=== PATIENT | female | born 1955 | race Caucasian/White ===

== ENCOUNTER 2017-07-28 10:26 | Emergency (ER) | payer OTHER ==
--- OUTSIDE RECORDS SUMMARY | 2017-07-28 10:29 | XMS REPORT | Clinical Summary ---
:1955 Author Organization [facility] Address [address] [place] [address] Care Team Providers Name Role Phone Victor Hugo Adair MD Primary Care Provider Allergies Active Allergy Reactions Severity Noted Date Comments Oxycodone [id number] 04/23/2017 Current Medications Prescription Sig. Disp. Refills Start Date End Date Status lorenaphos- Take 1 30 capsule 0 04/23/2017 Active phsal-hyo (URIBEL) capsule by 118-10-40.8-36 mg mouth every 6 capsule (six) hours. zolpidem (AMBIEN) 10 Take 10 mg by Active mg tablet mouth nightly as needed for sleep. LORAZepam (ATIVAN) Take 0.5 mg Active 0.5 MG tablet by mouth every 8 (eight) hours as needed for anxiety. diphenhydrAMINE Take 25 mg by Active (BENADRYL) 25 mg mouth nightly tablet as needed for sleep. CALCIUM Take by Active CARBONATE/VITAMIN D3 mouth. (CALTRATE 600 + D ORAL) magnesium gluconate Take 500 mg Active (MAGONATE) 500 mg by mouth tablet tablet daily. multivitamins & Take 15 mL by Active minerals-ferrous mouth daily. gluconate 9 mg iron/15 mL liquid lansoprazole Take 15 mg by Active (PREVACID) 15 MG mouth daily. capsule aspirin (ECOTRIN) 81 Take 81 mg by Active MG enteric coated mouth daily. tablet DULoxetine (CYMBALTA) Take 1 30 capsule 3 07/21/2017 Active 60 MG capsule capsule (60 9 mg total) by mouth daily. nitrofurantoin, Take 1 14 capsule 0 04/23/2017 macrocrystal-monohydr capsule (100 8 ate, (MACROBID) 100 mg total) by MG capsule mouth 2 (two) times a day for 7 days. ciprofloxacin (CIPRO) Take 1 tablet 14 tablet 0 05/11/2017 500 MG tablet (500 mg 8 total) by mouth 2 (two) times a day for 7 days. sertraline (ZOLOFT) Take 25 mg by Discontinued 25 MG tablet mouth daily. 8 Active Problems Not on file Encounters Date Type Specialty Care Team Description 07/21/2017 Office Visit Rheumatology Krishna Saldana, Fibromyalgia ( Primary Dx); History of elevated antinuclear antibody; Sleep disorder; Anxiety and depression; History of osteoporosis; History of migraine 05/11/2017 Orders Only Urology Peggy Brown MD 05/11/2017 Orders Only Urology Peggy Brown MD History of recurrent UTIs (Primary Dx) 05/11/2017 Telephone Urology Peggy Brown MD 04/23/2017 Refill Urology Peggy Brown MD 04/23/2017 Orders Only Urology Peggy Brown MD History of recurrent UTIs (Primary Dx) 04/23/2017 Telephone Urology Peggy Brown MD after 07/27/2016 Social History Tobacco Use Types Packs/Day Years Used Date Never Smoker Smokeless Tobacco: Never Used Alcohol Use Drinks/Week oz/Week Comments No Sex Assigned at Date Recorded Not on file Last Filed Vital Signs Vital Sign Reading Time Taken Blood Pressure 124/72 07/21/2017 9:10 AM CDT Pulse 83 07/21/2017 9:10 AM CDT Temperature - - Respiratory Rate - - Oxygen Saturation - - Inhaled Oxygen Concentration - - Weight 53.5 kg (118 lb) 07/21/2017 9:10 AM CDT Height 160 cm (5' 3") 07/21/2017 9:10 AM CDT Body Mass Index 20.9 07/21/2017 9:10 AM CDT Plan of Treatment Health Maintenance Due Date Last Done Comments PAP SMEAR 1978 COLONOSCOPY 2007 MAMMOGRAM 2007 ZOSTER VACCINE 2017 INFLUENZA VACCINE 11/24/2017 Results RQEZ RNA POLYMERASE III (NOT ORDERABLE) (07/21/2017 10:20 AM) Component Value Ref Range RNA polymerase III <20 <20 Units Specimen Performing Laboratory [facility] Narrative FASTING:NO FASTING: NO INTERPRETATION ([facility]) (07/21/2017 10:20 AM) Component Value Ref Range Interpretation SEE NOTE Comment: Thirty percent to 60% of patients with systemic sclerosis have Scl-70 (anti-topoisomerase antibodies), anti-centromere B antibodies, and/or anti-RNA polymerase III antibodies. Current [place] [employer] classification criteria for systemic sclerosis includes antibodies to Scl-70, centromere and RNA polymerase III. Scl-70 antibody positivity is found in 20-60% of patients with diffuse cutaneous scleroderma, and 31-36% of Scl-70 antibody patients have limited scleroderma. Scl-70 positivity is associated with scleroderma pulmonary disease. Centromere B antibody positivity is found in 64-95% of patients with a limited form of cutaneous systemic sclerosis ; patients may present with "CREST" syndrome, a complex of subcutaneous calcinosis, Raynaud's phenomenon, esophageal dysmotility, sclerodactyly, and telangiectasias. Scl-70 and centromere B antibodies are almost mutually exclusive, being present simultaneously in less than 0.5% of patients with systemic sclerosis. The rare patient with both antibodies typically has diffuse subcutaneous sclerosis and features of CREST. RNA polymerase III antibodies are >99% specific for systemic sclerosis and are associated with diffuse cutaneous disease and high risk for scleroderma renal crisis, but a low incidence of severe pulmonary fibrosis. While absence of these antibodies does not rule out a diagnosis of scleroderma, consideration should be given to diseases associated with the other autoantibody markers included in the GEOVANNA IFA screen. Specimen Performing Laboratory [facility] Narrative FASTING:NO FASTING: NO CENTROMERE B ANTIBODY (07/21/2017 10:20 AM) Component Value Ref Range Centromere antibody <1.0 NEG <1.0 NEGATIVE AI Specimen Performing Laboratory [facility] Narrative FASTING:NO FASTING: NO Scl-70 antibody (07/21/2017 10:20 AM) Component Value Ref Range Scleroderma SCL-70 Ab <1.0 NEG <1.0 NEGATIVE AI Specimen Performing Laboratory [facility] Narrative FASTING:NO FASTING: NO GEOVANNA SCREEN, IFA (07/21/2017 10:20 AM) Component Value Ref Range GEOVANNA screen POSITIVE (A) NEGATIVE Comment: GEOVANNA IFA is a first line screen for detecting the presence of up to approximately 150 autoantibodies in various autoimmune diseases. A positive GEOVANNA IFA result is suggestive of autoimmune disease and reflexes to titer and pattern. Further laboratory testing may be considered if clinically indicated. Visit Physician FAQs for interpretation of all antibodies in the [place], prevalence, and association with diseases at http://education.[employer])/faq/BGK750 Specimen Performing Laboratory [facility] Narrative FASTING:NO FASTING: NO ANTINUCLEAR ANTIBODIES TITER AND PATTERN (07/21/2017 10:20 AM) Component Value Ref Range GEOVANNA titer 1:80 (H) titer Comment: A low level GEOVANNA titer may be present in pre-clinical autoimmune diseases and normal individuals. Reference Ranges for Anti-Nuclear Ab Titer: <1:40Negative 1:40-1:80Low Antibody Level >1:80Elevated Antibody Level GEOVANNA pattern HOMOGENEOUS Comment: Homogeneous pattern is associated with systemic lupus erythematosus (SLE), drug-induced lupus and juvenile idiopathic arthritis. Specimen Performing Laboratory [facility] Narrative FASTING:NO FASTING: NO Sedimentation rate (07/21/2017 10:20 AM) Component Value Ref Range Sedimentation rate 2 < OR=30 mm/h Specimen Performing Laboratory [facility] Narrative FASTING:NO FASTING: NO CBC with platelet and differential (07/21/2017 10:20 AM) Component Value Ref Range WBC 6.1 3.8 - 10.8 Thousand/uL RBC 4.20 3.80 - 5.10 Million/uL HGB 13.1 11.7 - 15.5 g/dL HCT 39.4 35.0 - 45.0 % MCV 93.8 80.0 - 100.0 fL MCH 31.2 27.0 - 33.0 pg MCHC 33.2 32.0 - 36.0 g/dL RDW 13.0 11.0 - 15.0 % Platelet count 319 140 - 400 Thousand/uL MPV 8.8 7.5 - 12.5 fL Neutrophils, absolute 4,965 1,500 - 7,800 cells/uL Lymphocytes, absolute 964 850 - 3,900 cells/uL Monocytes, absolute 140 (L) 200 - 950 cells/uL Eosinophils, absolute 12 (L) 15 - 500 cells/uL Basophils, absolute 18 0 - 200 cells/uL Neutrophils 81.4 % Lymphocytes 15.8 % Monocytes 2.3 % Eosinophils 0.2 % Basophils + RC 0.3 % Specimen Performing Laboratory [facility] Narrative FASTING:NO FASTING: NO Comprehensive metabolic panel (07/21/2017 10:20 AM) Component Value Ref Range Glucose 110 (H) 65 - 99 mg/dL Comment: Fasting reference interval For someone without known diabetes, a glucose value between 100 and 125 mg/dL is consistent with prediabetes and should be confirmed with a follow-up test. BUN, whole blood 30 (H) 7 - 25 mg/dL Creatinine 0.90 0.50 - 0.99 mg/dL Comment: For patients >49 years of age, the reference limit for Creatinine is approximately 13% higher for people identified as -Samoan. EGFR Non-Afr. Samoan 69 > OR=60 mL/min/1.73m2 EGFR 81 > OR=60 mL/min/1.73m2 BUN/creatinine ratio 33 (H) 6 - 22 (calc) Sodium 140 135 - 146 mmol/L Potassium 4.5 3.5 - 5.3 mmol/L Chloride 106 98 - 110 mmol/L CO2 29 20 - 31 mmol/L Calcium 9.3 8.6 - 10.4 mg/dL Protein 6.3 6.1 - 8.1 g/dL Albumin, S 4.2 3.6 - 5.1 g/dL Globulin, total 2.1 1.9 - 3.7 g/dL (calc) Albumin/globulin ratio 2.0 1.0 - 2.5 (calc) Total bilirubin 0.5 0.2 - 1.2 mg/dL Alkaline phosphatase 58 33 - 130 U/L AST 25 10 - 35 U/L ALT 24 6 - 29 U/L Specimen Performing Laboratory [facility] Narrative FASTING:NO FASTING: NO Urine culture (04/23/2017 1:58 PM) Component Value Ref Range Urine culture SEE NOTE (A) Comment: CULTURE, URINE, ROUTINE MICRO NUMBER:[id number] TEST STATUS: FINAL SPECIMEN SOURCE: URINE, CATHETER SPECIMEN QUALITY:ADEQUATE RESULT:Greater than 100,000 CFU/mL of Escherichia coli E.coli INT AGUILA AMOX/CLAVULANATE S 8 AMPICILLIN R >=32 AMP/SULBACTAMS 8 CEFAZOLINNR<=4 1 CEFEPIME S <=1 CEFTRIAXONES <=1 CIPROFLOXACINS <=0.25 GENTAMICIN S <=1 IMIPENEM S <=0.25 LEVOFLOXACIN S <=0.12 NITROFURANTOIN S <=16 PIP/TAZOBACTAM S <=4 TOBRAMYCIN S <=1 TRIMETHOPRIM/SULFA S <=20 S=SusceptibleI=IntermediateR=Resistant*=Not Tested NR=Not ReportedNN=See Therapy Comments THERAPY COMMENTS Note 1: ORAL therapy: A cefazolin AGUILA of < 32 predicts susceptibility to the oral agents cefaclor, cefdinir, cefpodoxime, cefprozil, cefuroxime, cephalexin, and loracarbef when used for therapy of uncomplicated UTIs due to E. coli, K. pneumoniae, and P. mirabilis. PARENTERAL therapy: A cefazolin AGUILA of > 8 indicates resistance to parenteral cefazolin. An alternate test method must be performed to to confirm susceptibility to parenteral cefazolin. Specimen Performing Laboratory U[facility] Narrative FASTING:NO FASTING: NO after 07/27/2016 Insurance Payer Benefit Plan / Group Subscriber ID Type Phone Address AETNA AETNA HMO,POS,EPO, MC/EC xxxxxxxxx HMO Work: [employer] [phone] [address] Home: [phone] [facility]
[2017-07-28 10:56] LABS: Absolute Lymphocytes (CBC) 0.6 K/uL (0.7-4.9); Absolute Monocytes 0.4 K/uL (0.1-1.3); Absolute Neutrophil 6.7 K/uL (1.8-8.0); Basophils % 0.2 % (0-1.3); Eosinophils % 0.7 % (0-4.4); Hematocrit 45.7 % (36.0-45.0); Lymphocytes % 7.2 % (15.3-44.8); MCH 32.5 pg (27.0-35.0); MCV 96.2 fL (80-100); MPV 7.2 fL (7.6-11.3); Monocytes % 5.4 % (3.3-12.3); RBC Red Blood Cell Count 4.75 M/uL (3.86-4.86)
[2017-07-28] MEDS ORDERED: FAMOTIDINE 20 MG/2 ML VIAL IV ONE (11:00)
[2017-07-28] MEDS ORDERED: NA CHLORIDE 0.9% 500 ML ONE (11:00)
--- NOTE | 2017-07-28 11:02 | RAD REPORT ---
EXAM DESCRIPTION: Shona Single View07/28/2017 10:45 am CLINICAL HISTORY: Chest pain COMPARISON: 2013 FINDINGS: The lungs appear clear of acute infiltrate. The heart is normal size IMPRESSION: No acute abnormalities displayed
[2017-07-28 11:03] LABS: Protime INR 0.95
[2017-07-28] MEDS ORDERED: PROMETHAZINE 25 MG/ML VIAL ONE (11:23)
--- NOTE | 2017-07-28 11:24 | EKG ---
Test Date: 2017-07-28 Test Time: 10:35:27 Juvenile Probation Officer: JAMES MEASUREMENT RESULTS: Intervals: Rate: 104 HI: 138 QRSD: 72 QT: 352 QTc: 462 [place]: P: -2 HI: 138 QRS: 55 T: -16 INTERPRETIVE STATEMENTS: Sinus tachycardia Non specific T wave abnormality Abnormal ECG Compared to ECG 10/15/2012 07:06:01 T-wave abnormality now present Sinus rhythm no longer present Electronically Signed On 07-28-17 11:24:16 CDT by Tomas Garcia
[2017-07-28 11:25] LABS: Potassium 4.2 mEq/L (3.6-5.0)
[2017-07-28 11:30] LABS: Albumin 4.8 g/dL (3.2-5.5); Bilirubin Direct 0.2 mg/dL (0-0.2); Bilirubin Total 1.9 mg/dL (0.3-1.2); Protein, Total 7.6 g/dL (6.0-8.3)
[2017-07-28 11:35] LABS: CKMB Creatine Kinase MB 1.2 ng/ml (0.3-4.0)
[2017-07-28] MEDS ORDERED: NA CHLORIDE 0.9% 1,000 ML ONE (11:49)
[2017-07-28 13:30] LABS: Blood Morphology Comment NOT SEEN (NOT SEEN); Platelet Estimate ADEQ
--- NOTE | 2017-07-28 13:50 | RAD REPORT ---
EXAM DESCRIPTION: CT - Abdomen Pelvis W Contrast - 07/28/2017 1:35 pm CLINICAL HISTORY: Abdominal pain. Nausea, vomiting and diarrhea COMPARISON: 2011 TECHNIQUE: Computed axial tomography of the abdomen and pelvis was obtained. 100 cc Isovue-300 is ad ministered intravenously. Oral contrast was given. All CT scans are performed using dose optimization technique as appropriate and may include automated exposure control or mA/KV adjustment according to patient size. FINDINGS: A moderate hiatal hernia is present. The liver, spleen, pancreas, adrenals and kidneys appear unremarkable. A small right renal cyst prese nt. The appendix is normal caliber. There is no evidence of diverticulitis. An adnexal mass is not seen. Several loops of ileum are upper limits normal caliber. IMPRESSION: Several loops of ileum are upper limits normal caliber. This may indicate an enteritis. Moderate hiatal hernia
--- NOTE | 2017-07-28 15:23 | EDPHYS ---
Physician Documentation [facility] Name: Darby Kendrick Age: 62 yrs Sex: Female : 1955 Arrival Date: 07/28/2017 Time: 10:28 Bed 5 Private MD: ED Physician Deshawn Yanes HPI: 07/28 10:32 This 62 yrs old Female presents to ER via Unassigned with complaints of cp Nausea/Vomiting/Diarrhea, Abdominal Pain. 10:32 The patient presents to the emergency department with nausea, that is moderate, cp vomiting, that is intermittent, diarrhea, that is intermittent. Onset: The symptoms/episode began/occurred this morning, at 06:30. Possible causes: unknown. 10:32 Associated signs and symptoms: Pertinent negatives: constipation, dysuria, fever, GI cp bleeding. 10:32 Severity of symptoms: in the emergency department the symptoms are unchanged despite cp home interventions. Historical: - Allergies: 10:33 Percodan; hj - Home Meds: 10:33 Cymbalta 60 mg oral cpDR 1 cap once daily [Active]; Ambien 10 mg Oral tab 1 tab once hj daily [Active]; alprazolam 0.25 mg Oral tab 1 tab 3 times per day [Active]; sertraline 25 mg oral tab 1 tab once daily [Active]; acetaminophen 500 mg oral tab 1 tab every 4 hours [Active]; magnesium oxide 500 mg Oral tab [Active]; melatonin 10 mg Oral cap [Active]; lansoprazole 15 mg oral cpDR 1 cap as needed [Active]; - PMHx: 10:33 Fibromyalgia; Anxiety; Depression; hj - PSHx: 10:33 Unable to obtain; hj - Immunization history:: Adult Immunizations unknown. - Social history:: Smoking status: Patient/guardian denies using tobacco, Patient/guardian denies using alcohol. ROS: 10:35 Constitutional: Positive for poor PO intake, Negative for body aches, chills, fever. cp 10:35 Eyes: Negative for injury, pain, redness, and discharge, ENT: Negative for injury, cp pain, and discharge. 10:35 Cardiovascular: Negative for chest pain, edema, palpitations. 10:35 Respiratory: Negative for cough, shortness of breath, wheezing. 10:35 Abdomen/GI: Positive for abdominal pain, nausea, vomiting, and diarrhea, Negative for constipation, black/tarry stool, rectal bleeding. 10:35 Back: Negative for pain at rest, pain with movement, radiated pain. 10:35 : Negative for urinary symptoms. 10:35 Skin: Negative for cellulitis, rash. 10:35 Neuro: Negative for altered mental status, dizziness, headache, weakness. 10:35 All other systems are negative. Exam: 10:40 ECG was reviewed by the Attending Physician. cp 10:45 Constitutional: The patient appears in no acute distress, alert, awake, cp non-diaphoretic, non-toxic, well developed, well nourished, uncomfortable. 10:45 Head/Face: Normocephalic, atraumatic. cp 10:45 Eyes: Periorbital structures: appear normal, Pupils: equal, round, and reactive to light and accomodation, Conjunctiva: normal, no exudate, no injection, Sclera: no appreciated abnormality, Lids and lashes: appear normal, bilaterally. 10:45 ENT: External ear(s): are unremarkable, Ear canal(s): are normal, clear, TM's: bulging, is not appreciated, bilaterally, dullness, bilaterally, erythema, is not appreciated, bilaterally, Nose: is normal, Mouth: Lips: dry, Oral mucosa: dry, Posterior pharynx: Airway: no evidence of obstruction, patent, Tonsils: are normal in appearance, Uvula: midline, non-edematous, no erythema, swelling, is not appreciated, erythema, is not appreciated, exudate, is not appreciated. 10:45 Neck: ROM/movement: is normal, is supple, without pain, no range of motions limitations, no meningismus, no nuchal rigidity. 10:45 Chest/axilla: Inspection: normal, Palpation: is normal, no crepitus, no tenderness. 10:45 Cardiovascular: Rate: tachycardic, Rhythm: regular. 10:45 Respiratory: the patient does not display signs of respiratory distress, Respirations: normal, no use of accessory muscles, no retractions, no splinting, no tachypnea, labored breathing, is not present, Breath sounds: are clear throughout, no decreased breath sounds, no stridor, no wheezing. 10:45 Abdomen/GI: Inspection: abdomen appears normal, Bowel sounds: active, all quadrants, Palpation: soft, in all quadrants, moderate abdominal tenderness, in all quadrants, rebound tenderness, is not appreciated, voluntary guarding, is elicited in all quadrants. 10:45 Back: pain, is absent, ROM is normal. 10:45 : CVA tenderness, is absent. 10:45 Skin: cellulitis, is not appreciated, no rash present. 10:45 Neuro: Orientation: to person, place \T\ time. Mentation: lucid, able to follow commands, Cerebellar function: is grossly normal, Motor: moves all fours, strength is normal, Sensation: no obvious gross deficits. Vital Signs: 10:35 BP 109 / 60; Pulse 105; Resp 18; Temp 98.1(O); Pulse Ox 100% on R/A; Weight 52.62 kg; hj Height 5 ft. 3 in. (160.02 cm); Pain 5/10; 10:50 BP 113 / 89; Pulse 95; Resp 18; Pulse Ox 100% on R/A; hj 12:09 BP 127 / 68; Pulse 105; Resp 18; Pulse Ox 100% on R/A; hj 14:03 BP 118 / 64; Pulse 100; Resp 18; Pulse Ox 100% on R/A; hj 15:10 BP 114 / 61; Pulse 101; Resp 18; Pulse Ox 100% ; hj 15:42 BP 111 / 62; Pulse 95; Resp 18; Pulse Ox 100% on R/A; hj 10:35 Body Mass Index 20.55 (52.62 kg, 160.02 cm) MDM: 10:29 Patient medically screened. cp 11:00 Differential diagnosis: gastritis, cholecystitis, pancreatitis, appendicitis, cp diverticulitis, viral gastroenteritis, gastroenteritis. 15:15 Data reviewed: vital signs, nurses notes, lab test result(s), EKG, radiologic studies. cp 15:15 Test interpretation: by ED physician or midlevel provider: ECG, plain radiologic cp studies. Counseling: I had a detailed discussion with the patient and/or guardian regarding: the historical points, exam findings, and any diagnostic results supporting the discharge/admit diagnosis, lab results, radiology results, the need for outpatient follow up, a family practitioner. Response to treatment: the patient's symptoms have markedly improved after treatment, VSS. Reexamination of abdomen: benign with no tenderness noted. Patient tolerating po fluids. Will discharge to home for continued monitoring. 07/28 10:31 Order name: Basic Metabolic Panel; Complete Time: 11:38 cp 07/28 11:38 Interpretation: Normal except: GLUC 149; BUN 24; CRE 1.06; GFR 53. cp 07/28 10:31 Order name: BNP; Complete Time: 11:38 cp 07/28 10:31 Order name: CBC with Diff; Complete Time: 13:53 cp 07/28 11:23 Interpretation: Normal except: HGB 15.4; HCT 45.7; MCV 96.2; MPV 7.2; VASU% 86.5; LYM% cp 7.2; LYMA 0.6. 07/28 10:31 Order name: Ckmb; Complete Time: 11:38 cp 07/28 10:31 Order name: CPK; Complete Time: 11:38 cp 07/28 10:31 Order name: LFT's; Complete Time: 11:38 cp 07/28 11:39 Interpretation: Normal except: BILIT 1.9. cp 07/28 10:31 Order name: Magnesium; Complete Time: 11:38 cp 07/28 10:31 Order name: PT-INR; Complete Time: 11:22 cp 07/28 10:31 Order name: Ptt, Activated; Complete Time: 11:22 cp 07/28 14:27 Interpretation: PTT 23.2; Reviewed. cp 07/28 10:31 Order name: Troponin (emerg Dept Use Only); Complete Time: 11:22 cp 07/28 10:31 Order name: Lipase; Complete Time: 11:38 cp 07/28 13:29 Order name: Manual Differential; Complete Time: 13:53 EDAK 07/28 13:53 Interpretation: Abnormal: BANDS [F] 15; LYM 9. cp 07/28 14:08 Order name: Strep cp 07/28 14:38 Order name: Throat Culture EDMS 07/28 10:31 Order name: Urine Test (obtain specimen); Complete Time: 14:49 cp 07/28 10:31 Order name: XRAY Chest (1 view); Complete Time: 11:22 cp 07/28 10:31 Order name: EKG; Complete Time: 10:32 cp 07/28 10:31 Order name: Cardiac monitoring; Complete Time: 10:37 cp 07/28 10:31 Order name: EKG - Nurse/Tech; Complete Time: 10:46 cp 07/28 10:31 Order name: IV Saline Lock; Complete Time: 10:37 cp 07/28 10:31 Order name: Labs collected and sent; Complete Time: 10:46 cp 07/28 10:31 Order name: O2 Per Protocol; Complete Time: 10:38 cp 07/28 10:31 Order name: O2 Sat Monitoring; Complete Time: 10:38 cp 07/28 10:55 Order name: CT Abd/Pelvis - W/Contrast; Complete Time: 13:53 cp 07/28 15:07 Order name: Urine Dipstick--Ancillary (enter results) bd 07/28 10:31 Order name: Urine Dipstick-Ancillary (obtain specimen); Complete Time: 14:49 cp 07/28 14:28 Order name: PO challenge; Complete Time: 14:34 cp EC:40 Rate is 104 beats/min. Rhythm is regular. [place] interval is normal. QRS interval is cp normal. QT interval is normal. No ST changes noted. Interpreted by me. Reviewed by me. Administered Medications: 10:31 Drug: NS 0.9% 500 ml Volume: 500 ml; Route: IV; Rate: 1 bolus; Site: right antecubital; hj 10:49 Follow up: IV Status: Completed infusion hj 10:31 Drug: Pepcid 20 mg Route: IVP; Site: right antecubital; hj 10:49 Follow up: Response: No adverse reaction hj 10:55 Drug: Phenergan 12.5 mg Route: IVP; Site: right antecubital; hj 11:09 Follow up: Response: No adverse reaction; Nausea is decreased hj 11:24 Drug: NS 0.9% 1000 ml Route: IV; Rate: 100 ml/hr; Site: right antecubital; hj 15:44 Follow up: IV Status: Completed infusion hj 13:05 Drug: NS 0.9% 500 ml Route: IV; Rate: bolus; Site: left hand; hj 15:44 Follow up: IV Status: Completed infusion hj Disposition: 07/29 07:26 Co-signature as Attending Physician, Deshawn TORIBIO I agree with the assessment and thomas plan of care. Disposition: 07/28/17 15:22 Discharged to Home. Impression: Nausea and vomiting, Diarrhea, unspecified. - Condition is Stable. - Discharge Instructions: Food Choices to Help Relieve Diarrhea, Adult, Diarrhea, Nausea and Vomiting. - Prescriptions for Protonix 40 mg Oral Tablet - take 1 tablet by ORAL route once daily; 30 tablet. Zofran 4 mg Oral Tablet - take 1 tablet by ORAL route every 12 hours As needed; 20 tablet. Phenergan 25 mg Rectal Suppository - insert 1 suppository by RECTAL route every 6 hours As needed; 12 suppository. - Medication Reconciliation Form, Thank You Letter, Antibiotic Education, Prescription Opioid Use form. - Follow up: Private Physician; When: 1 - 2 days; Reason: Recheck today's complaints. - Problem is new. - Symptoms have improved. Signatures: Dispatcher [employer] EDDeshawn Gardner MD MD cha Joaquin, Henry, RN RN Deshawn Fu PA PA cp Corrections: (The following items were deleted from the chart) 07/28 11:35 10:33 Allergies: Oxycodone HCl; [facility] 11:35 10:33 Allergies: oxycodone terephthalate; [facility] 11:35 10:33 Allergies: Codeine; [facility] 11:35 10:33 Allergies: Aspirin; hj
--- NOTE | 2017-07-28 15:23 | ER ---
Nurse's Notes [facility] Name: Darby Kendrick Age: 62 yrs Sex: Female : 1955 Arrival Date: 07/28/2017 Time: 10:28 Bed 5 Private MD: Diagnosis: Nausea and vomiting;Diarrhea, unspecified Presentation: 07/28 10:29 Presenting complaint: EMS states: nausea, vomiting, diarrhea abd pain that started hj today, feels week prompted her to call for ambulance; pain of 8/10; intiial EMS BP on scene was 70/70, HR- 115; IV 22 G R hand, with NS bolus; Zofran 4 mg 1020 am; [facility] [place] [facility]- 123/70. Transition of care: patient was not received from another setting of care. Onset of symptoms was July 28, 2017. Care prior to arrival: Medication(s) given: zofran 4 mg, IV initiated. 22 GA, in the left hand. 10:29 Method Of Arrival: EMS: [facility] 10:29 Acuity: ROSITA 3 hj Triage Assessment: 10:34 General: Appears in no apparent distress. uncomfortable, slender, Behavior is calm, hj cooperative, appropriate for age. Pain: Complains of pain in abdomen Pain currently is 5 out of 10 on a pain scale. Quality of pain is described as crampy. EENT: No signs and/or symptoms were reported regarding the EENT system. Neuro: Level of Consciousness is awake, alert, obeys commands, Oriented to person, place, time, situation, Appropriate for age. Cardiovascular: Capillary refill < 3 seconds Patient's skin is warm and dry. Respiratory: Airway is patent Respiratory effort is even, unlabored, Respiratory pattern is regular, symmetrical. GI: Reports lower abdominal pain, upper abdominal pain, diarrhea, nausea, vomiting. : No signs and/or symptoms were reported regarding the genitourinary system. Derm: No signs and/or symptoms reported regarding the dermatologic system. Musculoskeletal: No signs and/or symptoms reported regarding the musculoskeletal system. Historical: - Allergies: 10:33 Percodan; hj - Home Meds: 10:33 Cymbalta 60 mg oral cpDR 1 cap once daily [Active]; Ambien 10 mg Oral tab 1 tab once hj daily [Active]; alprazolam 0.25 mg Oral tab 1 tab 3 times per day [Active]; sertraline 25 mg oral tab 1 tab once daily [Active]; acetaminophen 500 mg oral tab 1 tab every 4 hours [Active]; magnesium oxide 500 mg Oral tab [Active]; melatonin 10 mg Oral cap [Active]; lansoprazole 15 mg oral cpDR 1 cap as needed [Active]; - PMHx: 10:33 Fibromyalgia; Anxiety; Depression; hj - PSHx: 10:33 Unable to obtain; hj - Immunization history:: Adult Immunizations unknown. - Social history:: Smoking status: Patient/guardian denies using tobacco, Patient/guardian denies using alcohol. Screenin:34 Abuse screen: Denies threats or abuse. Denies injuries from another. Nutritional hj screening: No deficits noted. Tuberculosis screening: No symptoms or risk factors identified. Fall Risk None identified. Assessment: 10:36 Reassessment: see triage for assessment;. hj 11:33 Reassessment: Patient and/or family updated on plan of care and expected duration. Pain hj level reassessed. Patient is alert, oriented x 3, equal unlabored respirations, skin warm/dry/pink. pt finished drinking contrast, cardiac cath technician informed;. 12:30 Reassessment: Patient and/or family updated on plan of care and expected duration. Pain hj level reassessed. Patient is alert, oriented x 3, equal unlabored respirations, skin warm/dry/pink. awaiting CT;. 13:20 Reassessment: Patient and/or family updated on plan of care and expected duration. Pain hj level reassessed. Patient is alert, oriented x 3, equal unlabored respirations, skin warm/dry/pink. wheeled to CT:. 13:56 Reassessment: Patient and/or family updated on plan of care and expected duration. Pain hj level reassessed. Patient is alert, oriented x 3, equal unlabored respirations, skin warm/dry/pink. 15:02 Reassessment: able to tolerate PO fluids;. hj 15:42 Reassessment: Patient and/or family updated on plan of care and expected duration. Pain hj level reassessed. Patient is alert, oriented x 3, equal unlabored respirations, skin warm/dry/pink. D/C instructions given;. Vital Signs: 10:35 BP 109 / 60; Pulse 105; Resp 18; Temp 98.1(O); Pulse Ox 100% on R/A; Weight 52.62 kg; hj Height 5 ft. 3 in. (160.02 cm); Pain 5/10; 10:50 BP 113 / 89; Pulse 95; Resp 18; Pulse Ox 100% on R/A; hj 12:09 BP 127 / 68; Pulse 105; Resp 18; Pulse Ox 100% on R/A; hj 14:03 BP 118 / 64; Pulse 100; Resp 18; Pulse Ox 100% on R/A; hj 15:10 BP 114 / 61; Pulse 101; Resp 18; Pulse Ox 100% ; hj 15:42 BP 111 / 62; Pulse 95; Resp 18; Pulse Ox 100% on R/A; hj 10:35 Body Mass Index 20.55 (52.62 kg, 160.02 cm) hj ED Course: 10:28 Patient arrived in ED. hj 10:28 Deshawn Bazzi PA is PHCP. cp 10:28 Deshawn Yanes MD is Attending Physician. cp 10:32 Triage completed. hj 10:35 Arm band placed on right wrist. hj 10:35 Patient has correct armband on for positive identification. Placed in gown. Bed in low hj position. Call light in reach. Side rails up X 1. 10:35 Maintain EMS IV. Dressing intact. Site clean \T\ dry. Gauge \T\ site: 22 left hand. iw 10:37 Mario Florentino, TRES is Primary Nurse. hj 10:41 X-ray completed. Portable x-ray completed in exam room. Patient tolerated procedure jb2 well. 10:42 XRAY Chest (1 view) In Process Unspecified. EDMS 10:45 Initial lab(s) drawn, by me, sent to lab. Inserted saline lock: 20 gauge in right iw antecubital area, using aseptic technique. Blood collected. 10:52 EKG done, by blow mold technician. reviewed by Deshawn WATSON. vh 13:35 CT Abd/Pelvis - W/Contrast In Process Unspecified. EDMS 13:48 Inserted saline lock: 22 gauge in left forearm, using aseptic technique. hj 15:42 No provider procedures requiring assistance completed. IV discontinued, intact, hj bleeding controlled, No redness/swelling at site. Pressure dressing applied. Administered Medications: 10:31 Drug: NS 0.9% 500 ml Volume: 500 ml; Route: IV; Rate: 1 bolus; Site: right antecubital; hj 10:49 Follow up: IV Status: Completed infusion hj 10:31 Drug: Pepcid 20 mg Route: IVP; Site: right antecubital; hj 10:49 Follow up: Response: No adverse reaction hj 10:55 Drug: Phenergan 12.5 mg Route: IVP; Site: right antecubital; hj 11:09 Follow up: Response: No adverse reaction; Nausea is decreased hj 11:24 Drug: NS 0.9% 1000 ml Route: IV; Rate: 100 ml/hr; Site: right antecubital; hj 15:44 Follow up: IV Status: Completed infusion hj 13:05 Drug: NS 0.9% 500 ml Route: IV; Rate: bolus; Site: left hand; hj 15:44 Follow up: IV Status: Completed infusion hj Outcome: 15:22 Discharge ordered by MD. cp 15:43 Discharged to home via wheelchair. 15:43 Condition: stable 15:43 Discharge instructions given to patient, family, Instructed on discharge instructions, follow up and referral plans. medication usage, Demonstrated understanding of instructions, follow-up care, medications, Prescriptions given X 3. 15:45 Patient left the ED. Signatures: Dispatcher [employer] EDMS Gordon Young Irene, RN RN iw Harrell, Venessa vh Joaquin, Henry, RN RN hj Deshawn Bazzi PA PA cp Corrections: (The following items were deleted from the chart) 10:50 10:35 BP 109 / 60; Pulse 105bpm; Resp 18bpm; Pulse Ox 100% RA; Temp 98.1F Oral; 65.77 hj kg; Height 5 ft. 4 in.; BMI: 24.8; Pain 5/10; hj 11:35 10:33 Allergies: Oxycodone HCl; hj hj 11:35 10:33 Allergies: oxycodone terephthalate; hj hj 11:35 10:33 Allergies: Codeine; hj hj 11:35 10:33 Allergies: Aspirin; hj hj
[2017-07-28 15:59] VITALS: TEMP 98.1; O2SAT 100
[2017-07-28 16:05] VITALS: BP 111/62
[2017-07-28 16:23] LABS: Urine Blood NEGATIVE (NEG); Urine Glucose NEGATIVE (NEG); Urine Protein NEGATIVE (NEG); Urine pH 5.5 (5.0-7.0)
== END 2017-07-28 15:45 | disposition home or self-care (01) ==
LOC: ER 10:26
DX: R19.7 Diarrhea, unspecified (principal); F32.9 Major depressive disorder, single episode, unspecified; F41.9 Anxiety disorder, unspecified; Z88.5 Allergy status to narcotic agent
CPT/HCPCS: 36415; 71045; 74177; 80048; 80076; 81003; 82550; 82553; 83690; 83735; 83880; 84484; 85025; 85610; 85730; 87070; 87081; 93005; 96361; 96374; 96375; 99284; J2550; J7030; Q9967